=== PATIENT | female | born 1935 | race African-American/Black ===

== ENCOUNTER 2018-11-02 14:00 | Inpatient (IN) | payer MEDICARE ==
[~2018-11-02] VITALS: Ht 165.1 cm; Wt 51.3 kg
--- NOTE | 2018-11-02 14:26 | NUR ---
PATIENT TO ROOM 10
[2018-11-02] MEDS ORDERED: SODIUM CHLORIDE 0.9% 500ML 500 ML IV ONE (14:30)
[2018-11-02 14:41] LABS: BASOPHILS % 0.7 % (0.0-1.0); EOSINOPHILS % 0.5 % (0.0-6.0); HEMATOCRIT 41.4 % (34.2-44.1); HEMOGLOBIN 13.5 g/dL (12.0-16.0); LYMPHOCYTES # (AUTO) 1.6 (1.0-3.2); LYMPHOCYTES % 28.2 % (18.0-39.1); MEAN CORPUSCULAR HEMOGLOBIN 28.8 pg (28-32); MEAN CORPUSCULAR HGB CONC 32.6 g/dL (31-35); MEAN CORPUSCULAR VOLUME 88.3 fL (81-99); MONOCYTES # (AUTO) 0.4 (0.2-0.8); MONOCYTES % 6.6 % (4.4-11.3); NEUTROPHILS # (AUTO) 3.7 (2.1-6.9); NEUTROPHILS % 63.8 % (38.7-80.0); PLATELET COUNT 286 x10e3/uL (140-360); RED BLOOD COUNT 4.69 x10e6/uL (3.6-5.1); RED CELL DISTRIBUTION WIDTH 15.2 % (11.7-14.4)
--- NOTE | 2018-11-02 14:59 | NUR ---
ACTIVATED CODE STEMI
[2018-11-02] MEDS ORDERED: ASPIRIN 81 MG CHEW TAB PO ONE (15:00)
[2018-11-02] MEDS ORDERED: CLONIDINE HCL 0.1 MG TAB PO ONE (15:00)
[2018-11-02 15:06] LABS: ALANINE AMINOTRANSFERASE 18 IU/L (0-55); ALBUMIN 4.7 g/dL (3.5-5.0); ALBUMIN/GLOBULIN RATIO 1.4 (0.8-2.0); ALKALINE PHOSPHATASE 66 IU/L (40-150); AMYLASE 207 U/L (25-125); ANION GAP 13.9 mmol/L (8-16); BLOOD UREA NITROGEN 18 mg/dL (7-26); BUN/CREATININE RATIO 14 (6-25); CALCIUM 10.1 mg/dL (8.4-10.2); CARBON DIOXIDE 27 mmol/L (22-29); CHLORIDE 103 mmol/L (98-107); CREATINE KINASE 71 IU/L (29-168); CREATININE, SERUM 1.27 mg/dL (0.57-1.11); EST GLOMERULAR FILTRATION RATE 49 ML/MIN (60-); GLUCOSE 109 mg/dL (74-118); LIPASE 45 U/L (8-78); MAGNESIUM 2.7 MG/DL (1.3-2.1); POTASSIUM 3.9 mmol/L (3.5-5.1); SODIUM 140 mmol/L (136-145)
--- NOTE | 2018-11-02 15:09 | NUR ---
PER DR. MCWILLIAMS, HOLD [place] UNTIL CT REPORT BACK
[2018-11-02 15:10] LABS: CLARITY,URINE CLEAR (CLEAR); COLOR,URINE YELLOW (YELLOW)
[2018-11-02 15:11] LABS: BILIRUBIN,URINE NEGATIVE (NEGATIVE); KETONES,URINE NEGATIVE (NEGATIVE); LEUKOCYTE ESTERASE ,URINE NEGATIVE (NEGATIVE); NITRITE,URINE NEGATIVE (NEGATIVE); PROTEIN,URINE DIPSTICK 1+ (NEGATIVE); URINE UROBILINOGEN 0.2 mg/dL (0.2 - 1)
[2018-11-02 15:11] LABS: INR 0.91; PROTHROMBIN TIME 12.7 seconds (11.9-14.5)
[2018-11-02 15:12] LABS: PARTIAL THROMBOPLASTIN TIME 31.8 seconds (23.8-35.5)
[2018-11-02] MEDS ORDERED: TICAGRELOR 90 MG TABLET PO ONE (15:15)
--- NOTE | 2018-11-02 15:18 | Diagnostic Imaging Report ---
EXAMINATION: CHEST SINGLE (PORTABLE) COMPARISON: None INDICATION: Chest pain ^CP ^[id number] ^1500 DISCUSSION: Frontal view of the chest obtained at 1500 hours. HEART AND MEDIASTINUM: The heart is normal in size. The aorta is ectatic LINES: None. LUNGS: Diffuse hyperinflation consistent with COPD. No pneumonia or pulmonary edema. PLEURA: No pleural effusion or pneumothorax. BONES AND SOFT TISSUES: Diffuse costochondral calcifications. No focal osseous lesions. The soft tissues are normal. IMPRESSION: Pulmonary hyperinflation suggestive of COPD. No acute cardiopulmonary process. Signed by: Dr. Bárbara Roque MD on 11/02/2018 3:15 PM
[2018-11-02 15:21] LABS: BACTERIA,URINE RARE /HPF; EPITHELIAL CELLS,URINE RARE /LPF; MUCUS,URINE RARE (RARE); RBC,URINE 0-5 /HPF (0-5); WBC,URINE (MAN) 0-5 /HPF (0-5)
[2018-11-02] MEDS ORDERED: HEPARIN SOD (PORCINE) 1000 UNIT/ML 30ML ONE (15:26)
[2018-11-02] MEDS ORDERED: MIDAZOLAM HCL 2 MG/2 ML VIAL ONE (15:26)
[2018-11-02] MEDS ORDERED: FENTANYL CITRATE/PF 100MCG/2 ML INJ ONE (15:27)
[2018-11-02] MEDS ORDERED: SODIUM CHLORIDE 0.9% 1000ML 1,000 ML ONE ×2 (15:27→18:18)
[2018-11-02] MEDS ORDERED: HEPARIN SOD/SOD CHLORIDE 2,000 ML ONE (15:27)
[2018-11-02] MEDS ORDERED: LIDOCAINE HCL 2% LOCAL 20 ML VIAL ONE (15:27)
[2018-11-02] MEDS ORDERED: IOPAMIDOL 370 MG/ML 200 ML INFUS..BTL INJ ONE (15:27)
[2018-11-02] MEDS ORDERED: NITROGLYCERIN/D5W 200 MCG/ML 250 ML ONE (15:27)
[2018-11-02] MEDS ORDERED: VERAPAMIL HCL 2.5 MG/ML 2 ML VIAL ONE (15:28)
[2018-11-02] MEDS ORDERED: NITROGLYCERIN 2% OINT 1 GM PKT TOP ONE (15:30)
--- NOTE | 2018-11-02 15:35 | NUR ---
CATH TEAM AT BEDSIDE CONSENT SIGNED FAMILY UPDATED ON PLAN OF CARE
--- NOTE | 2018-11-02 15:36 | Diagnostic Imaging Report ---
CT Abdomen and Pelvis without contrast INDICATION: Right upper quadrant abdominal pain TECHNIQUE: Thin collimation axial images obtained from the diaphragm to the level of the pubic symphysis without nonionic intravenous contrast. Dose reduction techniques used: Automated exposure control, adjustment of the mAs and/or kVp according to patient size, standardized low-dose protocol, and/or iterative reconstruction technique. RADIATION DOSE: Total DLP: 148.25 mGy*cm Estimated effective dose: (DLP x 0.015 x size factor) mSv CTDIvol has been reviewed. It is below the limits set by the Radiation Protocol Committee (RPC). COMPARISON: None. ABDOMEN FINDINGS: Lung Bases: Minimal left basilar atelectasis. The heart is mildly enlarged. Liver: Normal attenuation. Multiple low attenuating foci throughout the parenchyma have the appearance of cysts. These measure up to 2.5 cm. The largest cyst is located in segment 7 and may be septated. Gallbladder: Present and appears normal. No ductal dilatation. Pancreas: Normal attenuation without mass. Spleen: Normal size without mass. Adrenal Glands: No evidence for mass. Kidneys: Right: No renal calculus. No cortical mass or hydronephrosis Left: No renal calculus. No cortical mass or hydronephrosis Lymph Nodes: No enlarged abdominal or retroperitoneal lymph nodes.. Aorta: Mildly tortuous but normal in diameter. No significant burden of mural calcification PELVIS FINDINGS: Bowel: Stomach: Normal. Small Bowel: Normal in caliber with normal wall thickness. Large Bowel: Normal in caliber with normal wall thickness. A few scattered diverticula are present. Appendix: Not visualized and may be absent or collapsed. Bladder: Normal. Ureters: No ureteral dilatation. The uterus is absent. There are no adnexal masses. Peritoneum/retroperitoneum: No free fluid or fluid collection.. Bones: Mild degenerative changes of the lower lumbar spine superimposed on minimal levoscoliosis. No compression deformities. No lytic or blastic lesions. IMPRESSION: 1. Multiple hepatic lesions suggestive of cysts. This could be confirmed with abdominal ultrasound on an outpatient basis. 2. No evidence for bowel obstruction or inflammation. Mild burden of diverticulosis coli. 3. No significant atherosclerosis. Mildly tortuous abdominal aorta. Signed by: Dr. Bárbara Roque MD on 11/02/2018 3:32 PM
--- OUTSIDE RECORDS SUMMARY | 2018-11-02 15:46 | XMS REPORT ---
Author Author [facility] Address Unknown Phone Unavailable Care Team Providers Care Radio Repairer Name Role Phone Justice MCWILLIAMS Unavailable Unavailable Problems This patient has no known problems. Allergies, Adverse Reactions, Alerts This patient has no known allergies or adverse reactions. Medications This patient has no known medications. Results Test Description Test Time Test Comments Text Results Atomic Results Result Comments CT ABDOMEN/PELVIS WO 2018-11-02 15:29:00 [place] [address] Patient Name: DOLORES DE LEON MR #: [id number] : 1935 Age/Sex: 83/F Req #: [id number] [facility] Physician: Ordered by: CINDY MCWILLIAMS MD Report #: [id number] Location: ER Room/Bed: Procedure: [id number] CT/CT ABDOMEN/PELVIS WO Exam Date: 11/02/18 Exam Time: 1500 REPORT STATUS: Signed CT Abdomen and Pelvis without contrast INDICATION: Right upper quadrant abdominal pain TECHNIQUE: Thin collimation axial images obtained from the diaphragm to the level of the pubic symphysis without nonionic intravenous contrast. Dose reduction techniques used: Automated exposure control, adjustment of the mAs and/or kVp according to patient size, standardized low-dose protocol, and/or iterative reconstruction technique. RADIATION DOSE: Total DLP: 148.25 mGy*cm Estimated effective dose: (DLP x 0.015 x size factor) mSv CTDIvol has been reviewed. It is below the limits set by the Radiation Protocol Committee (RPC). COMPARISON: None. ABDOMEN FINDINGS: Lung Bases: Minimal left basilar atelectasis. The heart is mildly enlarged. Liver: Normal attenuation. Multiple low attenuating foci throughout the parenchyma have the appearance of cysts. These measure up to 2.5 cm. The largest cyst is located in segment 7 and may be septated. Gallbladder: Present and appears normal. No ductal dilatation. Pancreas: Normal attenuation without mass. Spleen: Normal size without mass. Adrenal Glands: No evidence for mass. Kidneys: Right: No renal calculus. No cortical mass or hydronephrosis Left: No renal calculus. No cortical mass or hydronephrosis Lymph Nodes: No enlarged abdominal or retroperitoneal lymph nodes.. Aorta: Mildly tortuous but normal in diameter. No significant burden of mural calcification PELVIS FINDINGS: Bowel: Stomach: Normal. Small Bowel: Normal in caliber with normal wall thickness. Large Bowel: Normal in caliber with normal wall thickness. A few scattered diverticula are present. Appendix: Not visualized and may be absent or collapsed. Bladder: Normal. Ureters: No ureteral dilatation. The uterus is absent. There are no adnexal masses. Peritoneum/retroperitoneum: No free fluid or fluid collection.. Bones: Mild degenerative changes of the lower lumbar spine superimposed on minimal levoscoliosis. No compression deformities. No lytic or blastic lesions. IMPRESSION: 1. Multiple hepatic lesions suggestive of cysts. This could be confirmed with abdominal ultrasound on an outpatient basis. 2. No evidence for bowel obstruction or inflammation. Mild burden of diverticulosis coli. 3. No significant atherosclerosis. Mildly tortuous abdominal aorta. Signed by: Dr. Zaid Roque MD on 11/02/2018 3:32 PM Dictated By: ZAID ROQUE MD 1532 Transcribed By: FRANCY on 11/02/18 1532 COPY TO: CINDY MCWILLIAMS MD CHEST SINGLE (PORTABLE) 2018-11-02 15:14:00 [place] [address] Patient Name: DOLORES DE LEON MR #: [id number] : 1935 Age/Sex: 83/F Req #: [id number] [facility] Physician: Ordered by: CINDY MCWILLIAMS MD Report #: [id number] Location: ER Room/Bed: Procedure: [id number] DX/CHEST SINGLE (PORTABLE) Exam Date: 11/02/18 Exam Time: 1500 REPORT STATUS: Signed EXAMINATION: CHEST SINGLE (PORTABLE) COMPAR SUMAYA: None INDICATION: Chest pain CP [id number] DISCUSSION: Frontal view of the chest obtained at 1500 hours. HEART AND MEDIASTINUM: The heart is normal in size. The aorta is ectatic LINES: None. LUNGS: Diffuse hyperinflation consistent with COPD. No pneumonia or pulmonary edema. PLEURA: No pleural effusion or pneumothorax. BONES AND SOFT TISSUES: Diffuse costochondral calcifications. No focal osseous lesions. The soft tissues are normal. IMPRESSION: Pulmonary hyperinflation suggestive of COPD. No acute cardiopulmonary process. Signed by: Dr. Zaid Roque MD on 11/02/2018 3:15 PM Dictated By: ZAID ROQUE MD 1513 Transcribed By: FRANCY on 11/02/18 0343 COPY TO: CINDY MCWILLIAMS MD
--- NOTE | 2018-11-02 15:54 | Diagnostic Imaging Report ---
History:Weakness Comparison studies: None Technique: Axial images were obtained from the skull base to the vertex. Coronal and sagittal images reconstructed from the axial data. Dose modulation, iterative reconstruction, and/or weight based adjustment of the mA/kV was utilized to reduce the radiation dose to as low as reasonably achievable. Intravenous contrast: None Findings: Scalp/skull: No abnormalities. Extra-axial spaces: No masses. No fluid collections. Brain sulci: Moderately prominent. Ventricles: Moderate compensatory dilatation. No hydrocephalus. Parenchyma: Ill defined hypodensities in the supratentorial white matter are small vessel ischemic changes. No masses, hemorrhage, acute or chronic cortical vascular insults. Sellar/suprasellar region: No abnormalities. Craniocervical junction: Patent foramen magnum. No Chiari one malformation. Incidental findings: Atherosclerotic calcifications in the carotid siphons . 2 mm sessile osteoma along the outer table of the frontal bone at midline Impression: No acute abnormalities. Chronic findings: 1. Moderate generalized volume loss. 2. Moderate supratentorial white matter small vessel ischemic changes. Signed by: Dr. Sunil Hsu M.D. on 11/02/2018 3:50 PM
--- NOTE | 2018-11-02 16:38 | Operative Report ---
DATE OF PROCEDURE: 11/02/2018 SURGEON: Ronaldo Noble DO PROCEDURES PERFORMED: 1. Conscious sedation, 26 minutes. 2. Selective coronary angiography x2. 3. Left heart catheterization. PREPROCEDURE DIAGNOSES: 1. Unstable angina. 2. Abnormal electrocardiogram. POSTPROCEDURE DIAGNOSIS: Hypertensive heart disease. ESTIMATED BLOOD LOSS: Less than 10 mL. SPECIMENS REMOVED: None. PROCEDURE IN DETAIL: After informed consent was obtained, the patient was brought to the cardiac catheterization laboratory in an emergent fashion. The patient presented with unstable angina type symptoms and a severely abnormal electrocardiogram. Bilateral groins and right wrist were prepped and draped in usual sterile fashion. 2% lidocaine was instilled over the right anterior wrist for local anesthesia. Using micropuncture needle, the right radial artery was accessed via modified Seldinger technique and a 6-Palauan glide sheath was placed. Next, diagnostic coronary angiography was performed using an XB LAD 3 guide catheter and a JR3.5 diagnostic catheter. The left ventricle was entered with the JR catheter and diagnostic hemodynamics were performed. No obstructions were found. The patient tolerated procedure well with no immediate complications and transferred back to her room in stable condition. Hemostasis was achieved via TR band. PROCEDURAL FINDINGS: 1. Left main coronary artery is patent without significant coronary artery disease. 2. Left anterior descending coronary artery is a highly tortuous vessel without significant stenosis. The diagonal branch is a medium to large caliber vessel with diffuse luminal irregularities. 3. The left circumflex coronary artery provides one obtuse marginal vessel with mild luminal irregularities. Again, this coronary system is highly tortuous. 4. The right coronary artery is a dominant vessel and provides posterior descending coronary artery. There are mild luminal irregularities present in this coronary system. Left ventricular end-diastolic pressure is 14 mmHg with no aortic valve gradient present upon pullback. IMPRESSION: Hypertensive heart disease with tortuous coronary arteries. RECOMMENDATIONS: The patient needs adequate blood pressure control. We will check risk factors and treat as needed. Ronaldo Noble DO BM/MODL /[id number]
--- NOTE | 2018-11-02 17:18 | Consultation ---
DATE OF CONSULTATION: Cardiology Consultation REASON FOR CONSULTATION: Abnormal electrocardiogram and unstable angina. HISTORY OF PRESENT ILLNESS: This is an 83-year-old woman with a history of hypertension, not on any medications, depression, irritable bowel syndrome, who presented to the emergency department with symptoms of chest pain, shortness of breath, weakness, diaphoresis, and generalized unwell feeling. The patient was at [employer] today, started to feel unwell with fatigue, lethargy, shortness of breath and central chest pain. The chest pain was moderate in intensity, nonradiating, pressure type, no other exacerbating or relieving factors. Upon arrival here to the emergency department, she was noted to be severely hypertensive with systolic greater than 230 and an abnormal electrocardiogram concerning for an acute myocardial infarction. She went to the cardiac catheterization laboratory where she was found to have tortuous vessels without any obstructions. She was transferred to the intensive care unit in stable condition. REVIEW OF SYSTEMS: A 12-point review of system was conducted, is negative otherwise as stated above in the HPI. PAST MEDICAL HISTORY: As stated above in the HPI. PAST SURGICAL HISTORY: None recent. FAMILY HISTORY: No premature coronary artery disease or sudden cardiac . SOCIAL HISTORY: No illicit drug, alcohol or tobacco use. ALLERGIES: SULFA DRUGS. MEDICATIONS: See medication reconciliation form. PHYSICAL EXAMINATION: VITAL SIGNS: She is afebrile, heart rate is 72, respirations 16, blood pressure currently is 131/66, ox saturation 100% on 2 L nasal cannula. GENERAL: She is a well-appearing elderly woman, lying comfortably in bed. HEAD: Normocephalic, atrial atraumatic. EYES: Extraocular muscles intact. THROAT: Clear. NECK: No JVD. No bruits. CARDIOVASCULAR: She has regular rate and rhythm. Mild systolic murmur at the left sternal border. LUNGS: Clear to auscultation bilaterally. No wheezing or rales. ABDOMEN: Soft, nontender, nondistended. EXTREMITIES: No clubbing, cyanosis or edema. VASCULAR: 2+ pulses. SKIN: Warm, dry and intact. NEUROLOGIC: No focal deficits noted. Cranial nerves are grossly intact. No focal deficits noted. LABORATORY VALUES: Pending. Total electrocardiogram shows normal sinus rhythm, left ventricular hypertrophy with J-point elevation in the anterior leads with anterolateral T-wave inversions. Cardiac catheterization revealed no obstruction with mild luminal irregularities and highly tortuous vessels. IMPRESSION: 1. Hypertensive urgency. 2. Hypertensive heart disease. 3. Depression. 4. Irritable bowel syndrome. 5. Abnormal electrocardiogram. RECOMMENDATIONS: The patient had no acute coronary occlusion. Symptoms and abnormal electrocardiogram, likely related to hypertensive urgency. The patient received clonidine with control over blood pressure acutely. We will wait for CMP to assess kidney function and potassium levels prior to starting medications. We will provide hydralazine p.r.n. Check a 2D echocardiogram and check risk factors with a lipid profile and hemoglobin A1c. DO MYAH Coulter/MODL /[id number]
[2018-11-02 17:21] VITALS: BP 149/89
[2018-11-02 17:22] LABS: CREATINE KINASE MB 1.3 ng/mL (0-5.0)
--- NOTE | 2018-11-02 17:50 | NUR ---
coming in to do admission. patient is holding her right arm at a bed. Forearm is very swollen, tender, and hard. tr band in place. pulse palpable. notified md, he orders to apply a manual bp cuff and set it 20 mmHg below sbp. bp then drops a little 45 pulse 79/41 bp, patient feeling faint. called md again and he orders atropine and 1 l bolus and hh. ok to start levo if needed, but notify md first. patient's family at bedside and are continually updated.
[2018-11-02] MEDS ORDERED: ATROPINE SULFATE 0.1 MG/ML 10ML SYR ONE (18:19)
[2018-11-02 18:32] LABS: HEMOGLOBIN 11.1 g/dL (12.0-16.0)
[2018-11-02] MEDS ORDERED: HYDRALAZINE HCL 20 MG/ML VIAL IV PRN (18:45)
[2018-11-02] MEDS ORDERED: ONDANSETRON HCL INJ 2MG/ML 2ML 2 MG/ML VIAL IV PRN (18:45)
[2018-11-02] MEDS ORDERED: ACETAMINOPHEN 325 MG TAB PO PRN (18:45)
[2018-11-02] MEDS ORDERED: ACETAMINOPHEN/CODEINE 300MG - 30MG TAB PO PRN (18:45)
[2018-11-02 19:00] VITALS: BP 143/79
--- NOTE | 2018-11-02 19:00 | NUR ---
Herman DAWN received bedside report from Meera Garduno RN. Herman DAWN to assume care of the pt. I will act in role of Herman's preceptor. Addendum: 11/02/18 at [address] RN Amended: Links added.
[2018-11-02 20:00] VITALS: BP_SYST 143; BP_SYST 93; BP_DIAS 55; BP_DIAS 79
[2018-11-02 21:00] VITALS: BP 105/66
[2018-11-02] MEDS ORDERED: DICYCLOMINE HCL20 MG PO (21:37)
[2018-11-02] MEDS ORDERED: SERTRALINE HCL50 MG PO (21:37)
[2018-11-02 22:00] VITALS: BP 92/53
[2018-11-02 23:00] VITALS: BP 80/48
[2018-11-03] VITALS (13 sets, daily range): BP systolic 95–130; BP diastolic 51–67
[2018-11-03 04:58] LABS: BASOPHILS % 0.5 % (0.0-1.0); EOSINOPHILS % 0.6 % (0.0-6.0); HEMOGLOBIN 11.2 g/dL (12.0-16.0); LYMPHOCYTES # (AUTO) 1.4 (1.0-3.2); LYMPHOCYTES % 20.5 % (18.0-39.1); MEAN CORPUSCULAR HEMOGLOBIN 29.2 pg (28-32); MEAN CORPUSCULAR HGB CONC 32.9 g/dL (31-35); MEAN CORPUSCULAR VOLUME 88.5 fL (81-99); MONOCYTES # (AUTO) 0.5 (0.2-0.8); MONOCYTES % 7.8 % (4.4-11.3); NEUTROPHILS # (AUTO) 4.7 (2.1-6.9); NEUTROPHILS % 70.4 % (38.7-80.0); PLATELET COUNT 232 x10e3/uL (140-360); RED BLOOD COUNT 3.84 x10e6/uL (3.6-5.1); RED CELL DISTRIBUTION WIDTH 15.3 % (11.7-14.4)
[2018-11-03 05:26] LABS: CREATINE KINASE MB 1.4 ng/mL (0-5.0)
[2018-11-03 05:47] LABS: ALANINE AMINOTRANSFERASE 15 IU/L (0-55); ALBUMIN 3.6 g/dL (3.5-5.0); ALBUMIN/GLOBULIN RATIO 1.3 (0.8-2.0); ALKALINE PHOSPHATASE 48 IU/L (40-150); ANION GAP 13.1 mmol/L (8-16); BLOOD UREA NITROGEN 15 mg/dL (7-26); BUN/CREATININE RATIO 15 (6-25); CALCIUM 9.2 mg/dL (8.4-10.2); CARBON DIOXIDE 24 mmol/L (22-29); CHLORIDE 107 mmol/L (98-107); CHOL/HDL RATIO 2.3 (3.0-3.6); CHOLESTEROL 184 MD/DL (0-199); CREATININE, SERUM 0.97 mg/dL (0.57-1.11); EST GLOMERULAR FILTRATION RATE > 60 ML/MIN (60-); GLUCOSE 95 mg/dL (74-118); HDL CHOLESTEROL 80 MG/DL (40-60); LDL CHOLESTEROL 90 MG/DL (60-130); POTASSIUM 4.1 mmol/L (3.5-5.1); SODIUM 140 mmol/L (136-145); TRIGLYCERIDES 69 MG/DL (0-149)
[2018-11-03 06:08] LABS: THYROID STIMULATING HORMONE 0.661 uIU/mL (0.350-4.940)
[2018-11-03] MEDS ORDERED: FAMOTIDINE 20 MG TAB PO SCH (07:30)
[2018-11-03] MEDS ORDERED: REGLAN10 MG PO (08:44)
[2018-11-03] MEDS ORDERED: ASPIR 8181 MG PO (08:44)
[2018-11-03] MEDS ORDERED: FAMOTIDINE20 MG PO (08:44)
[2018-11-03] MEDS ORDERED: ASPIRIN 81 MG ENTERIC COATED PO SCH (09:00)
--- NOTE | 2018-11-03 10:11 | NUR ---
rue wrapped with debbie bandage per Dr Sepulveda. removed RAC PIV as well. patient may discharge after lunch per dr sepulveda.
[2018-11-03] MEDS ORDERED: METOCLOPRAMIDE HCL 10 MG/2ML VIAL IV SCH (11:30)
--- NOTE | 2018-11-03 12:52 | Progress Note ---
DATE: 11/03/2018 Cardiology Progress Note SUBJECTIVE: No major events overnight. No chest pain. Blood pressure well controlled. OBJECTIVE: VITAL SIGNS: Temperature 97.8, pulse 68, respiratory rate 16, blood pressure 115/56, and saturating 100% on room air. GENERAL: Elderly female, in no acute distress. CARDIOVASCULAR: Regular rate and rhythm. No murmurs, rubs, or gallops. LUNGS: Clear to auscultation bilaterally. ABDOMEN: Soft, nontender, and nondistended. NEURO AND PSYCH: Alert and oriented to person, place, and time. Normal affect. INPATIENT MEDICATIONS: Reviewed. LABORATORY DATA: Reviewed. IMAGING DATA: Reviewed. Cardiac catheterization revealed nonobstructive CAD and tortuous vessels. TELEMETRY DATA: Reviewed, shows normal sinus rhythm. ASSESSMENT AND PLAN: 1. Hypertensive urgency. 2. Hypertensive heart disease. 3. Depression. 4. Irritable bowel syndrome. 5. Abnormal EKG. RECOMMENDATIONS: Doing well from cardiovascular standpoint. Blood pressure is well controlled on current oral medications. Continue optimal medical therapy and risk factor control. Okay to be discharged from cardiovascular standpoint with followup with Dr. Noble in 2 weeks post discharge. Thank you for this consult. We will continue to follow. MD CHRISTIAN Samaniego/GARIMA /[id number]
--- NOTE | 2018-11-04 13:57 | Discharge Summary ---
ADMISSION DIAGNOSES: 1. Chest pain. 2. Hypertensive urgency. 3. Depression. 4. Irritable bowel syndrome. 5. Underweight. DISCHARGE DIAGNOSES: 1. Chest pain. 2. Hypertensive urgency. 3. Depression. 4. Irritable bowel syndrome. 5. Underweight. 6. Rule out acute coronary syndrome. HISTORY: The patient has a history of depression and IBS. She also has a history of hypertension, but has been off medicine for multiple years. SURGICAL HISTORY: Hysterectomy. FAMILY HISTORY: Noncontributory. SOCIAL HISTORY: Noncontributory. HOSPITAL COURSE: An 83-year-old female complains of dull right upper quadrant abdominal pain that was constant beginning yesterday while sitting in [employer]. She also had associated shortness of breath, dizziness, diaphoresis, and weakness. She denies nausea, vomiting, diarrhea, and fever. The pain did not radiate. On admission, the patient had troponins which were negative x3. She had a cardiac stent, which showed no significant CAD. The EKG showed normal sinus rhythm. She was started on aspirin, Reglan, and Pepcid. Her blood pressure on admission was 230/116. She was given clonidine and verapamil in the ER, which resolved the hypertension. The following day, she has been off medications and her blood pressure is controlled. The patient has been cleared for discharge by Cardiology. She will discharge home with aspirin, Pepcid, and Reglan. She is feeling much better with no chest pain and tolerating her diet. She will follow up with primary care in 1 to 2 weeks. The patient understands discharge instructions and agrees to plan. Dictated by Jessica Rodas NP MD [place] oCok/GARIMA /[id number]
== END 2018-11-03 12:38 | disposition home or self-care (01) | DRG 287 ==
LOC: ER 14:00 → CATH LAB V 15:34 → ICU 17:24
PROVIDERS: ADMIT Internal Medicine; ATTEND Internal Medicine
PROC: 4A023N7 Measurement of Cardiac Sampling and Pressure, Left Heart, Percutaneous Approach (ICD-10-PCS; principal; 2018-11-02)
PROC: B2111ZZ Fluoroscopy of Multiple Coronary Arteries using Low Osmolar Contrast (ICD-10-PCS; 2018-11-02)
PROC: B2151ZZ Fluoroscopy of Left Heart using Low Osmolar Contrast (ICD-10-PCS; 2018-11-02)
DX: I16.0 Hypertensive urgency (principal); Z68.1 Body mass index [BMI] 19.9 or less, adult; I25.110 Atherosclerotic heart disease of native coronary artery with unstable angina pectoris; E44.1 Mild protein-calorie malnutrition; F32.9 Major depressive disorder, single episode, unspecified; K58.9 Irritable bowel syndrome, unspecified; I11.9 Hypertensive heart disease without heart failure
CPT/HCPCS: 36415; 70450; 71045; 74176; 80053; 80061; 81001; 82150; 82550; 82553; 83036; 83690; 83735; 83880; 84439; 84443; 84484; 85014; 85018; 85025; 85610; 85730; 93005; 93306; 93458; 99284; J1644; J2001; J2250; J7030; J7040; Q9967